=== PATIENT | male | born 1945 | race African-American/Black ===

== ENCOUNTER 2019-08-19 13:52 | Emergency (ER) | payer OTHER ==
[~2019-08-19] VITALS: Ht 182.9 cm; Wt 79.8 kg
--- NOTE | ~2019-08-19 | EKG ---
[facility] [place] [address] ELECTROCARDIOGRAM REPORT Name: GANGA SOLANO Room #: [facility].#: [id number] Admission: 08/19/19 Attend Phys: Discharge: Date of : 49 Report #: [id number] THIS REPORT FOR: cc: VELMA Lucia family physician/PCP VELMA Lucia family physician/PCP Jose Garcia MD ~ THIS REPORT FOR: //name// [facility] ED Test Date: 2019-08-19 Test Time: 14:05:44 Pat Name: GANGA SOLANO Department: Room: Gender: M Associate Medical Director: KMD : 1945 Requested By: Gamaliel Hogan Order Number: [id number] MD: Measurements Intervals [place] Rate: 76 P: -27 WA: 238 QRS: -61 QRSD: 167 T: 120 QT: 433 QTc: 487 Interpretive Statements Sinus rhythm Prolonged WA interval Left atrial enlargement Left bundle branch block Baseline wander in lead(s) V3 No previous ECG available for comparison [email or web address] By: [id number] 1405 Epiphany EpiphanyMD /EPI
[2019-08-19 14:34] LABS: HEMATOCRIT 36.4 % (42.0-52.0); HEMOGLOBIN 12.1 gm/dL (14.0-18.0); MCH 29.9 pg (26.0-34.0); MCHC 33.3 g/dL (28.0-37.0); MCV 89.8 fL (80.0-100.0); PLATELET COUNT 131 thou/uL (150-400); RBC 4.05 mil/uL (4.50-6.00); WBC 6.1 thou/uL (4.0-11.0)
[2019-08-19 14:46] LABS: ANION GAP 5 mmol/L (7-16); BUN 17 mg/dL (7-18); CHLORIDE 99 mmol/L (98-107); CO2 33 mmol/L (21-32); CREATININE 1.2 mg/dL (0.7-1.3); GLUCOSE 119 mg/dL (74-106); POTASSIUM 3.5 mmol/L (3.5-5.1); SODIUM 137 mmol/L (136-145)
[2019-08-19 14:54] LABS: TROPONIN-I <0.06 ng/mL (<0.06)
[2019-08-19] MEDS ORDERED: ACCUNEB SO1.25 MG/1 INH (15:42)
[2019-08-19] MEDS ORDERED: ACETAMINOPHEN325 MG PO (15:43)
[2019-08-19] MEDS ORDERED: AMLODIPINE BESY10 MG PO (15:43)
[2019-08-19] MEDS ORDERED: LIPITOR40 MG PO (15:45)
[2019-08-19] MEDS ORDERED: BACLOFEN 10MG T10 MG PO ×2 (15:45→15:46)
[2019-08-19] MEDS ORDERED: CARVEDILOL25 MG PO (15:49)
[2019-08-19] MEDS ORDERED: PLAVIX 75 MG TA75 MG PO (15:50)
[2019-08-19] MEDS ORDERED: CLONIDINE HCL0.2 M2 PO ×2 (15:50→16:03)
[2019-08-19] MEDS ORDERED: FLONASE 0.05%50 MCG NASAL (15:52)
[2019-08-19] MEDS ORDERED: FUROSEMIDE 40 M40 M1 PO (15:56)
[2019-08-19 15:57] LABS: ABSOLUTE NEUTROPHILS 4.8 thou/uL (1.4-8.2); PLATELET ESTIMATE NORMAL
[2019-08-19] MEDS ORDERED: HYDRALAZINE 2525 MG PO (15:57)
[2019-08-19] MEDS ORDERED: HYDROCHLOROTHIA25 M1 PO (15:57)
[2019-08-19] MEDS ORDERED: ISOSORBIDE MONO60 M1 PO (15:58)
[2019-08-19] MEDS ORDERED: SENNA PLUS TAB1 EACH PO (15:59)
[2019-08-19] MEDS ORDERED: PEG3350510 GM PO (15:59)
[2019-08-19] MEDS ORDERED: SYMBICORT160 MCG/4. INH (16:00)
[2019-08-19] MEDS ORDERED: SPIRIVA INH (16:00)
[2019-08-19] MEDS ORDERED: FLOMAX0.4 MG PO (16:01)
[2019-08-19] MEDS ORDERED: PROAIR HFA8.5 GM INH (16:02)
[2019-08-19] MEDS ORDERED: MI-ACID80 MG PO (16:04)
[2019-08-19] MEDS ORDERED: ROBITUSSIN100 MG/53 PO (16:05)
[2019-08-19] MEDS ORDERED: MECLIZINE HCL25 M1 PO (17:56)
[2019-08-19 18:22] VITALS: BP 129/57
== END 2019-08-19 18:23 | disposition home or self-care (01) ==
LOC: ER 13:52
PROVIDERS: Emergency Medicine
DX: H83.09 Labyrinthitis, unspecified ear (principal); I25.2 Old myocardial infarction; I10 Essential (primary) hypertension; J44.9 Chronic obstructive pulmonary disease, unspecified; Z86.73 Personal history of transient ischemic attack (TIA), and cerebral infarction without residual deficits